=== PATIENT | male | born 1995 | race Caucasian/White ===

== ENCOUNTER 2019-07-12 20:36 | Emergency (ER) | payer OTHER ==
--- NOTE | 2019-07-12 20:44 | PDOC ---
Rapid Medical Evaluation Medical Evaluation: 07/12/19 20:39 I have performed a brief in-person evaluation of this patient. The patient presents with a chief complaint of: states heavy 12x12 cm box fell off a truck onto head today at work. Since then has had dizziness and feels off. No LOC, visual changes, n/v. H/o bipolar, schizophrenia, HTN and morbid obesity Pertinent physical exam findings: Hypertensive and tachycardic, no focal deficits I have ordered the following:CTH The patient will proceed to the ED for further evaluation. Discharge Disposition - Diagnosis Head injury Qualifiers: Encounter type: initial encounter Qualified Code(s): S09.90XA - Unspecified injury of head, initial encounter - Referrals - Patient Instructions - Post Discharge Activity
[2019-07-12 20:46] VITALS: TEMP 98.1; BMI 55.7
--- NOTE | 2019-07-12 21:30 | PDOC ---
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 Patient reports that all day he has been having headache, dizziness and periods of confusion. Patient reports that are similar to when he had concussions in the past. patient has a past medical history of psychiatric disorder, schizophrenia, concussions Past History - Past Medical History Allergies/Adverse Reactions: Allergies Allergy/AdvReac Type Severity Reaction Status Date / Time diphenhydramine Allergy Verified 07/12/19 20:47 [From Benadryl] Home Medications: Ambulatory Orders NK [No Known Home Medication] 07/12/19 COPD: No HTN: Yes Psychiatric Problems: Yes (bipolar, paranoid schizophrenia) - Psycho Social/Smoking Cessation Hx Smoking History: Current every day smoker Number of Cigarettes Smoked Daily: 2 Information on smoking cessation initiated: No Review of Systems - Review of Systems Able to Perform ROS?: Yes Is the patient limited Afghan proficient: No Neurological: Yes: Headache, Dizziness *Physical Exam - Vital Signs Last Vital Signs Temp Pulse Resp BP Pulse Ox 98.1 F 116 H 20 156/107 H 97 07/12/19 20:42 07/12/19 20:42 07/12/19 20:42 07/12/19 20:42 07/12/19 20:42 - Physical Exam General Appearance: Yes: Appropriately Dressed HEENT: positive: TMs Normal, Other (PERRLA) Respiratory/Chest: positive: Lungs Clear, Normal Breath Sounds Cardiovascular: positive: Regular Rhythm, Regular Rate Extremity: positive: Normal Capillary Refill, Normal Inspection, Normal Range of Motion Integumentary: positive: Normal Color, Dry, Warm Neurologic: positive: chicken raiser II-XII NML intact, Fully Oriented, Alert, Normal Mood/ Affect, Normal Response, Motor Strength 5/5 ED Treatment Course - RADIOLOGY Radiology Studies Ordered: Category Date Time Status CERVICAL SPINE CT W/O CONTR [CT] Stat CT Scan 07/12/19 20:55 Ordered ED Progress Note - Progress Note Progress Note: 07/12/19 22:27 A: concussion P: CT head/ ct c-spine: negative Discharge - Discharge Information Problems reviewed: Yes Clinical Impression/Diagnosis: Neck pain Head injury Qualifiers: Encounter type: initial encounter Qualified Code(s): S09.90XA - Unspecified injury of head, initial encounter Concussion Qualifiers: Encounter type: initial encounter Loss of consciousness presence/duration: without LOC Qualified Code(s): S06.0X0A - Concussion without loss of consciousness, initial encounter Hypertension Qualifiers: Hypertension type: unspecified Qualified Code(s): I10 - Essential (primary) hypertension Disposition: HOME - Follow up/Referral Referrals: Alex Boateng MD [Staff Physician] - Call tomorrow - Patient Discharge Instructions Patient Printed Discharge Instructions: Postconcussion Syndrome Additional Instructions: rest and relax as much as possible. It is very important that you follow-up with a neurologist as soon as possible. Your CT scan every is negative. Return to the emergency room for any worsening symptoms your blood pressure is noted to be high, please follow up with your pcp as soon as possible - Post Discharge Activity Work/Back to School Note: Back to Work
[2019-07-12 23:23] VITALS: BP 159/107; PULSE 100
== END 2019-07-12 23:36 | disposition home or self-care (01) ==
LOC: JER 20:36 → SUPCPDRO 20:36 → JER 23:36
DX: S06.0X0A Concussion without loss of consciousness, initial encounter (principal); V09.09XA Pedestrian injured in nontraffic accident involving other motor vehicles, initial encounter; Y92.488 Other paved roadways as the place of occurrence of the external cause; Y99.0 Civilian activity done for income or pay; Y93.89 Activity, other specified; F31.9 Bipolar disorder, unspecified; F20.0 Paranoid schizophrenia
CPT/HCPCS: 70450-TC; 72125-TC; 99282-25